=== PATIENT | female | born 1980 | race Caucasian/White ===

== ENCOUNTER 2017-02-02 17:08 | Inpatient (IN) | payer OTHER ==
[~2017-02-02] VITALS: Ht 177.8 cm; Wt 99.0 kg
--- NOTE | 2017-02-02 17:15 | NUR ---
PT BIBA FROM HOME FOR NARCOTIC OVERDOSE. PER EMS, PT WAS FOUND UNRESPONSIVE IN BATHROOM BY CHILD.PER REPORT, PT HAD CALLED BOYFRIEND 1/2 HOUR PRIOR TO EMS ARRIVAL AND STATED THAT SHE WANTED TO HARM HERSELF. EMS STATES PATIENT HAD INGESTED APPROX 120 7.5MG OXYCODONE. 4MG IV NARCAN GIVEN ON SCENE WITH NO RESPONSE. PT ARRIVES WUITH NASAL ET TUBE, RTEPORT SINUS TACH 127.
--- NOTE | 2017-02-02 17:23 | ED GENERAL ADULT ---
History of Present Illness General Chief Complaint: ETOH/Drug Related Complaint Stated Complaint: BIBA FOR OVERDOSE Source: patient Exam Limitations: clinical condition, poor historian, physical impairment Vital Signs & Intake/Output Vital Signs & Intake/Output Vital Signs Date Time Temp Pulse Resp B/P B/P Pulse O2 O2 Flow FiO2 Mean Ox Delivery Rate 02/02 1801 96.7 103 18 117/65 100 Ventilator 50% 02/02 1758 80 02/02 1735 100 Ventilator 80% 02/02 3757 151 6027/87 Allergies Coded Allergies: UNOBTAINABLE (02/02/17) Triage Note: PT BIBA FROM HOME FOR NARCOTIC OVERDOSE. PER EMS, PT WAS FOUND UNRESPONSIVE IN BATHROOM BY CHILD.PER REPORT, PT HAD CALLED BOYFRIEND 1/2 HOUR PRIOR TO EMS ARRIVAL AND STATED THAT SHE WANTED TO HARM HERSELF. EMS STATES PATIENT HAD INGESTED APPROX 120 7.5MG OXYCODONE. 4MG IV NARCAN GIVEN ON SCENE WITH NO RESPONSE. PT ARRIVES WUITH NASAL ET TUBE, RTEPORT SINUS TACH 127. Triage Nurses Notes Reviewed? yes Onset: Abrupt Duration: hour(s): Timing: unknown HPI: The patient was seen on arrival. She is a 36-year-old female who presents to the emergency department after an overdose. Apparently she was depressed, called her boyfriend, and ingested multiple pills this afternoon. EMS arrived and the scene and found her unresponsive and not breathing. She was nasotracheally intubated in the field, after she did not respond to 4 mg of Narcan. Fingerstick was normal per EMS. The onset of the symptoms were abrupt. The duration was sometime today. The severity is significant as her symptoms required her to come to the emergency department for care. Fingerstick in the ED was 110. She was given an additional 1 mg of Narcan with no response. Soft restraints were applied for her own safety. Anesthesia was called to evaluated the tube and concurred with the decision to maintain the current tube. Poison control was consulted. Past History Travel History Traveled to [place] past 21 day No Medical History Any Pertinent Medical History? see below for history Psychiatric: depression Surgical History Surgical History: unobtainable Family History Hx Contributory? No Review of Systems Review of Systems Constitutional: Reports: no symptoms. EENTM: Reports: no symptoms. Respiratory: Reports: see HPI. Cardiovascular: Reports: no symptoms. GI: Reports: no symptoms. Genitourinary: Reports: no symptoms. Musculoskeletal: Reports: no symptoms. Skin: Reports: no symptoms. Neurological/Psychological: Reports: see HPI. Hematologic/Endocrine: Reports: no symptoms. Immunologic/Allergic: Reports: no symptoms. All Other Systems: Reviewed and Negative Physical Exam Physical Exam General Appearance: intubated Head: pupils equally reactive to light, trachea midline Eyes: Bilateral: PERRL. Ears, Nose, Throat: endotracheal tube through right naris Neck: supple Respiratory: good air entry bilaterally with bagging Cardiovascular: regular rate/rhythm Peripheral Pulses: 4+ radial (R), 4+ radial (L) Gastrointestinal: soft, non-tender Back: decreased range of motion Extremities: no edema Neurologic/Psych: combative, no focal weakness, Skin: intact, normal color, warm/dry Core Measures ACS in differential dx? No CVA/TIA Diagnosis: No Severe Sepsis Present: No Septic Shock Present: No Progress Differential Diagnoses I considered the following diagnoses in my evaluation of the patient: [Polydrug ingestion, Tylenol overdose, aspiration pneumonia, ARDS,] Plan of Care: Orders Procedure Date/time Status Nothing by Mouth 02/03 B Active LACTIC ACID 02/02 2021 Active Pathway - chart 02/02 1909 Active House Staff 02/02 190 Active Patient Data 02/02 190 Active CULTURE,URINE 02/02 190 Active Admit to inpatient 02/02 1858 Active Add-on Test (ER Only) 02/02 185 Active VENTILATOR PARAMETERS 02/02 1804 Complete ARTERIAL BLOOD GAS (GEN) 02/02 1753 Complete Add-on Test (ER Only) 02/02 1753 Active Restraint- Medical 02/02 1753 Active Add-on Test (ER Only) 02/02 1747 Active URINE 02/02 1723 Complete ACETOMINOPHEN 02/02 1723 Complete SALICYLATE 02/02 1723 Complete ETHANOL 02/02 1723 Complete URINE DRUG SCREEN FOR ER ONLY 02/02 1721 Complete URINALYSIS 02/02 1721 Complete PARTIAL THROMBOPLASTIN TIME 02/02 1721 Complete PROTHROMBIN TIME 02/02 1721 Complete LACTIC ACID 02/02 1721 Complete COMPREHENSIVE METABOLIC PANEL 02/02 1721 Complete CBC WITHOUT DIFFERENTIAL 02/02 1721 Complete EKG 02/02 1721 Active VTE Mechanical Prophylaxis 02/02 UNK Active Vital Signs 02/02 UNK Active Intake & Output 02/02 UNK Active Garibay, Insertion/Removal/Asses 02/02 UNK Active Current Medications Sig/Mervat Start time Last Medication Dose Stop Time Status Admin Acetylcysteine 10,000 MG ONE ONE 02/03 0030 AC (Acetadote) 02/03 1629 Dextrose/Water 1,000 ML (D5W 1000) Acetylcysteine 5,000 MG ONE ONE 02/02 2030 AC (Acetadote) 02/03 0029 Dextrose/Water 500 ML (D5W) Acetylcysteine 15,000 MG ONE ONE 02/02 1930 AC (Acetadote) 02/02 2029 Dextrose/Water 200 ML (D5W) Enoxaparin Sodium 30 MG DAILY 02/03 1908 UNVr (Lovenox) Laboratory Tests 02/02/17 1755: pH 7.41, pCO2 33 L, pO2 448 H, HCO3 20 L, ABG O2 Sat (Measured) 99.0, P-50 ( Temp Corrected) Y, Carboxyhemoglobin 0.1 L, O2 Concentration % 80%, Temperature 97.0, Respiration Rate 18, O2 Delivery Method VENT, Vent Mode CMV, Expiratory Pressure 5, Tidal Volume 500, Phlebotomy Draw Site RIGHT RADIAL 02/02/17 1723: Urine Opiates Screen 885.00, Methadone Screen 89, Barbiturate Screen < 60, Ur Phencyclidine Scrn 7.00, Amphetamines Screen 849, U Benzodiazepines Scrn < 85, Urine Cocaine Screen < 50, Urine Cannabis Screen < 5.00 02/02/17 1723: Anion Gap 16, Estimated GFR > 60, BUN/Creatinine Ratio 21.3, Glucose 119 H, Lactic Acid 2.4 H, Calcium 9.1, Total Bilirubin 1.2, AST 29, ALT 38, Alkaline Phosphatase 63, Total Protein 6.4, Albumin 4.1, Globulin 2.3, Albumin/Globulin Ratio 1.8, PT 12.0, INR 1.14, APTT 29, CBC w Diff NO MAN DIFF REQ, RBC 4.33, MCV 93.7, MCH 31.0, RDW 13.6, MPV 9.3, Gran % 62.3, Lymphocytes % 28.7, Monocytes % 6.3, Eosinophils % 2.0, Basophils % 0.7, Absolute Granulocytes 3.9, Absolute Lymphocytes 1.8, Absolute Monocytes 0.4, Absolute Eosinophils 0.1, Absolute Basophils 0, PUBS MCHC 33.1, Salicylates < 1.0, Acetaminophen 95.0 *H, Serum Alcohol < 10.0, Urine Color YEL, Urine Clarity CLEAR, Urine pH 6.0, Ur Specific [place] 1.020, Urine Protein NEG, Urine Ketones NEG, Urine Nitrite NEG, Urine Bilirubin NEG, Urine Urobilinogen 0.2, Ur Leukocyte Esterase NEG, Ur Microscopic EXAM NOT REQUIRED, Urine Hemoglobin NEG, Urine Glucose NEG, Urine Test NEGATIVE Microbiology 02/02 1909 URINE ROUT: Urine Culture - ORD CXR Impression: ENDOTRACHEAL TUBE IN GOOD POSITION Initial ED EKG: NSR Departure Departure Disposition: STILL A PATIENT Condition: Stable Clinical Impression Primary Impression: Drug ingestion Secondary Impressions: Depression, Respiratory failure, Tylenol overdose Referrals: PATIENT HAS NO PRIMARY CARE DR (PCP/Family) Departure Forms: Customer Survey General Discharge Information Admission Note Spoke With: GOSIA DAVE MD Documentation of Exam: Documentation of any treatments & extenuating circumstances including Concerns Regarding Discharge (functional status, medication knowledge or non-compliance, living conditions, etc.) that warrant an admission rather than observation: [ Patient needs to be admitted to the ICU for critical care. Tylenol level was elevated. I spoke with poison control who suggested starting Mucomyst protocol at 150 mg/kg in 250 mL of D5W over an hour followed by 50 mg/kg in 500 mL of D5 water over 4 hours immediately followed by 100 mg/kg and 1 L of D5 water over 16 hours. The patient is intubated. We are estimating 70 kg. She is being admitted to the ICU for further care] CXR IMPRESSION: 1. Endotracheal tube with its tip terminating approximately 7.0 cm proximal to the christine. 2. Clear lungs. DICTATED BY: TARAH BENAVIDES MD DATE/TIME DICTATED:02/02/171852 UMBRELLA TIPPER:DRAKE DATE/TIME TRANSCRIBED:02/02/171852 CONFIDENTIAL, DO NOT COPY WITHOUT APPROPRIATE AUTHORIZATION. <Electronically signed in Other Vendor System> SIGNED BY: TARAH BENAVIDES MD [id number] Critical Care Note Critical Care Note Critical Care Time: 30-74 min
--- NOTE | 2017-02-02 17:25 | NUR ---
ORIGINAL PEC PLACED IN LOCK BOX. COPY TO CHART.
--- NOTE | 2017-02-02 17:26 | NUR ---
LABS DRAWN AND SENT (BLUE SST LAV [facility])
[2017-02-02 17:40] LABS: ABSOLUTE BASOPHIL COUNT 0 /CUMM (0.0-0.2); ABSOLUTE EOSINOPHIL COUNT 0.1 /CUMM (0.0-0.7); ABSOLUTE GRANULOCYTE CT 3.9 /CUMM (1.4-6.5); ABSOLUTE LYMPH COUNT 1.8 /CUMM (1.2-3.4); ABSOLUTE MONOCYTE COUNT 0.4 /CUMM (0.10-0.60); BASOPHIL % 0.7 % (0.0-2.0); GRANULOCYTE % 62.3 % (42.2-75.2); HEMATOCRIT 40.6 % (37-47); MEAN CORPUSCULAR HGB CONC 33.1 G/DL (33.0-37.0); MEAN CORPUSCULAR VOLUME 93.7 FL (81.0-99.0); MEAN PLATELET VOLUME 9.3 FL (7.4-10.4); PLATELET COUNT 174 /CUMM (130-400); RBC DISTRIBUTION WIDTH 13.6 % (11.5-14.5); RED BLOOD CELL CT 4.33 /CUMM (4.20-5.40); WHITE BLOOD CELL COUNT 6.3 /CUMM (4.8-10.8)
[2017-02-02 18:04] LABS: PTT 29 SEC (25-37)
--- NOTE | 2017-02-02 18:12 | NUR ---
FAMILY AT BEDSIDE
--- NOTE | 2017-02-02 18:19 | NUR ---
CRITICAL TEST RESULTS [id number] CHRISTOPHER NOLEN 36 F TESTS AND RESULTS: LACTIC ACID 2.4 Results received and read back by: IAN BRASWELL Results received date and time: 02/02/171819 The following provider was notified of the results, and read the results back: DR. DENNY Notified date and time: 02/02/17 at 1820
--- NOTE | 2017-02-02 18:34 | NUR ---
PORTABLE CHEST X RAY AT BEDSIDE
--- NOTE | 2017-02-02 18:41 | NUR ---
CRITICAL TEST RESULTS [id number] CHRISTOPHER NOLEN 36 F TESTS AND RESULTS: ACETAMINOPHEN 95.0 Results received and read back by: IAN BRASWELL Results received date and time: 02/02/17 1841 The following provider was notified of the results, and read the results back: DR. DENNY Notified date and time: 02/02/17 at 1840
--- NOTE | 2017-02-02 19:02 | RADIOLOGY REPORT ---
EXAMINATION: XR CHEST PORTABLE CLINICAL INFORMATION: Status post intubation. COMPARISON: No relevant prior studies are available for comparison. TECHNIQUE: Portable frontal view of the chest was obtained. FINDINGS: The endotracheal tube is noted with its tip terminating approximately 7.0 cm proximal to the christine. No airspace consolidation. No pleural effusion or pneumothorax. No cardiomediastinal silhouette enlargement. No acute osseous interbody. IMPRESSION: 1. Endotracheal tube with its tip terminating approximately 7.0 cm proximal to the christine. 2. Clear lungs.
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
--- NOTE | 2017-02-02 19:28 | NUR ---
ADMITTING MD AT BEDSIDE FOR EVAL
--- NOTE | 2017-02-02 20:05 | NUR ---
ACETADOTE #1 INITIATED AT 275ML/HR ORDERED
--- NOTE | 2017-02-02 20:47 | NUR ---
PT GOING TO ROOM 106-1.
[2017-02-02 21:30] VITALS: BP 148/78
[2017-02-02 22:00] VITALS: BP 116/95
[2017-02-02 22:56] LABS: ABSOLUTE BASOPHIL COUNT 0 /CUMM (0.0-0.2); ABSOLUTE EOSINOPHIL COUNT 0 /CUMM (0.0-0.7); ABSOLUTE GRANULOCYTE CT 6.3 /CUMM (1.4-6.5); ABSOLUTE LYMPH COUNT 0.7 /CUMM (1.2-3.4); ABSOLUTE MONOCYTE COUNT 0.3 /CUMM (0.10-0.60); BASOPHIL % 0.3 % (0.0-2.0); EOSINOPHIL % 0.1 % (0-5); GRANULOCYTE % 86.6 % (42.2-75.2); HEMATOCRIT 36.2 % (37-47); MEAN CORPUSCULAR HGB 31.4 PG (27.0-31.0); MEAN CORPUSCULAR HGB CONC 33.7 G/DL (33.0-37.0); MEAN CORPUSCULAR VOLUME 93.3 FL (81.0-99.0); MEAN PLATELET VOLUME 9.3 FL (7.4-10.4); PLATELET COUNT 159 /CUMM (130-400); RBC DISTRIBUTION WIDTH 13.9 % (11.5-14.5); RED BLOOD CELL CT 3.88 /CUMM (4.20-5.40)
--- NOTE | 2017-02-02 23:15 | NUR ---
RECEIVED PT FROM ER VIA STRETCHER AT 2130-PT NASALLY INTUBATED AND BAGGED BY RESP THERAPIST, ACETYLCYSTINE GTT INFUSING, EKG MONITORING, BARONE IN PLACE, SOFT BILATERAL WRIST RESTRAINTS ON. PT PLACED IN BED AND ATTACHED TO BEDSIDE MONITOR. PT UNRESPONSIVE TO VERBAL STIMULI, WITHDRAWS TO PAINFUL STIMULI. BREATH SOUNDS CLEAR WITH DIMINISHED BREATH SOUNDS AT BASES BILATERALLY. SUCTIONING FOR MOD AMT OF THICK PALE YELLOW SECREATIONS. NO SOB OR RESP DISTRESS NOTED AT PRESENT. SEE FLOW SHEET FOR VS, 02 SATS, I/O'S. MONITOR SHOWS ST, NO ECTOPY NOTED AT PRESENT. BP STABLE AT PRESENT. ABD OBESE, SOFT, NONTENDER, NONDISTENDED, POSITIVE BOWEL SOUNDS. BARONE DRAINING ADEQUATE AMT OF CLEAR YELLOW URINE AT PRESENT. SKIN INTACT. FAMILY AT BEDSIDE.
[2017-02-02 23:19] LABS: WHITE BLOOD CELL COUNT 7.3 /CUMM (4.8-10.8)
[2017-02-03] VITALS (10 sets, daily range): BP systolic 114–150; BP diastolic 62–86
--- NOTE | 2017-02-03 00:36 | NUR ---
PROPOFOL GTT STARTED AT 2245 AT 5MCG/KG/HR ORDERED-SEE FLOW SHEET FOR SAS SCORES. NGT ORDERED-SPOKE WITH DR. MODI-STATED TO NOT INSERT PT IS ALREADY NASALLY INTUBATED, NOT VOMITING OR RECEIVING ANY PO MEDS. WILL MONITOR. PT NOW OPENING EYES TO VERBAL STIMULI, FOLLOWING SOME COMMANDS AT PRESENT
--- NOTE | 2017-02-03 00:57 | Admission Certification ---
Admission Certification Certification Statement - As attending physician, I certify that at the time of - admission, based on clinical presentation, severity of - symptoms, need for further diagnostic testing and - therapeutic interventions, and risk of adverse outcomes - without in-hospital treatment, in my clinical assessment, - this patient requires an acute hospital stay for a minimum - of two nights or longer. I have also considered psychsocial - factors such as support system, advanced age, financial - issues, cognitive issues, and failed out-patient treatments, - past re-admission history, safety of patient, and lack of - compliance as applicable. Specific rationale supporting this admission is: Overdose, suicidal attempt, acute respiratory failure
[2017-02-03 04:38] LABS: ABSOLUTE BASOPHIL COUNT 0 /CUMM (0.0-0.2); ABSOLUTE EOSINOPHIL COUNT 0 /CUMM (0.0-0.7); ABSOLUTE GRANULOCYTE CT 7.3 /CUMM (1.4-6.5); ABSOLUTE LYMPH COUNT 0.5 /CUMM (1.2-3.4); ABSOLUTE MONOCYTE COUNT 0.3 /CUMM (0.10-0.60); BASOPHIL % 0.4 % (0.0-2.0); EOSINOPHIL % 0.4 % (0-5); GRANULOCYTE % 89.5 % (42.2-75.2); HEMATOCRIT 38.5 % (37-47); MEAN CORPUSCULAR HGB 31.1 PG (27.0-31.0); MEAN CORPUSCULAR VOLUME 94.2 FL (81.0-99.0); MEAN PLATELET VOLUME 9.6 FL (7.4-10.4); PLATELET COUNT 160 /CUMM (130-400); RED BLOOD CELL CT 4.09 /CUMM (4.20-5.40); WHITE BLOOD CELL COUNT 8.1 /CUMM (4.8-10.8)
[2017-02-03 04:39] LABS: PT 13.1 SEC (9.4-12.5)
--- NOTE | 2017-02-03 06:32 | NUR ---
PT ON PROPOFOL GTT AT 10MCG/KG/MIN-SAS 3-4, PT DROWSY, EASILY AROUSABLE TO VERBAL STIMULI, FOLLOWING COMMANDS AT PRESENT. MOVES ALL EXTREMITIES. PT APPRORATE. PT REMAINS NASALLY INTUBATED, MINIMAL SUCTIONING OF PALE YELLOW SECREATIONS. BREATH SOUNDS CLEAR. MONITOR NSR-ST-HR 90-100'S. BP STABLE THOUGHOUT SHIFT. GOOD URINE OUTPUT THOUGHOUT SHIFT. SKIN INTACT
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
--- NOTE | 2017-02-03 08:01 | RADIOLOGY REPORT ---
EXAMINATION: CHEST 1 VIEW CLINICAL INFORMATION: Intubated. Overdose. COMPARISON: 02/02/2017. TECHNIQUE: An AP view of the chest is provided. FINDINGS: The cardiac silhouette is not enlarged. An endotracheal tube is in place. The tip is approximately 10 cm above the christine. The mediastinal and hilar contours are unremarkable. There are neither pleural effusions nor pneumothoraces. There are no consolidations. The osseous structures are unremarkable. IMPRESSION: Endotracheal tube in place. No evidence for acute disease.
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
[2017-02-03 16:15] LABS: ABSOLUTE BASOPHIL COUNT 0 /CUMM (0.0-0.2); ABSOLUTE EOSINOPHIL COUNT 0 /CUMM (0.0-0.7); ABSOLUTE GRANULOCYTE CT 5.7 /CUMM (1.4-6.5); ABSOLUTE LYMPH COUNT 1.3 /CUMM (1.2-3.4); ABSOLUTE MONOCYTE COUNT 0.5 /CUMM (0.10-0.60); BASOPHIL % 0.5 % (0.0-2.0); EOSINOPHIL % 0.5 % (0-5); GRANULOCYTE % 75.6 % (42.2-75.2); HEMATOCRIT 39.4 % (37-47); MEAN CORPUSCULAR HGB 31.1 PG (27.0-31.0); MEAN CORPUSCULAR HGB CONC 33.6 G/DL (33.0-37.0); MEAN CORPUSCULAR VOLUME 92.8 FL (81.0-99.0); PLATELET COUNT 190 /CUMM (130-400); RBC DISTRIBUTION WIDTH 13.6 % (11.5-14.5); RED BLOOD CELL CT 4.25 /CUMM (4.20-5.40); WHITE BLOOD CELL COUNT 7.6 /CUMM (4.8-10.8)
[2017-02-03 16:26] LABS: PTT 38 SEC (25-37)
--- NOTE | 2017-02-03 18:27 | NUR ---
NAC BAG #3 FINISHED. TYLENOL LEVEL <10. PER DR ROSEN, NO FURTHER NAC NEEDED. PT A/O, OCCASIONAL TEARFUL. PROVIDED EMOTIONAL SUPPORT. PT IS PHILIP WELL, INDEPENDENT. ON ROOM AIR, 97% LUNGS CLEAR. VSS.
[2017-02-04] VITALS (8 sets, daily range): BP systolic 94–130; BP diastolic 52–72
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
--- NOTE | 2017-02-04 08:28 | PN- CRCU ---
Subjective HPI/Critical Care Issues: The patient is doing well postextubation. She is on room air. She offers no respiratory complaints. She is taking in adequate oral intake. Her Garibay catheter has been discontinued and she is voiding independently. She is very remorseful today and asking for help for herself and her children. Objective Current Medications: Current Medications Sig/Mervat Start time Last Medication Dose Route Stop Time Status Admin Acetylcysteine 10,000 MG ONE ONE 02/03 0030 DC 02/03 Dextrose/Water 1,000 ML IV 02/03 1629 0140 Enoxaparin Sodium 40 MG DAILY 02/03 0300 AC 02/03 SC 0924 Famotidine 20 MG BID 02/03 1000 AC 02/03 IV 2150 Magnesium Sulfate 1 GM ONCE ONE 02/03 0815 MO 02/03 Dextrose/Water 100 ML IV 02/03 1214 0846 Melatonin 10 MG AT BEDTIME 02/03 2200 AC 02/03 PO 2210 Ondansetron HCl 4 MG Q6P PRN 02/03 0915 AC 02/03 IV 0924 Potassium Chloride 10 MEQ Q1H 02/03 0815 DC 02/03 IV 02/03 0916 1122 Propofol 1,000 MG PER PROTOCL 02/02 2145 DC 02/02 N/A 1 UNIT IV 2245 Sodium Chloride 1 SPRAY TIDPRN PRN 02/03 1100 AC NIRALI Sodium Chloride 1,000 ML Q13H 02/03 0200 DC 02/03 IV 0245 Vital Signs & I&O Last 24 Hrs of Vitals and I&O: Vital Signs Date Time Temp Pulse Resp B/P B/P Pulse O2 O2 Flow FiO2 Mean Ox Delivery Rate 02/04 0600 98.7 66 16 112/71 02/04 0400 98.7 62 14 111/64 02/04 0200 98.9 64 16 108/61 02/04 0000 98.9 72 18 103/54 02/04 0000 98.9 72 18 110/60 96 Room Air Room Air 02/03 2200 99.5 80 16 119/65 02/03 2000 99.5 82 18 114/62 02/03 1800 99.2 82 24 119/73 02/03 1600 99.2 96 17 146/80 02/03 1600 99.2 96 17 146/80 97 Room Air 02/03 1600 97 Room Air 02/03 1400 99 23 130/68 02/03 1200 98.7 98 18 124/68 02/03 1200 97 Room Air 02/03 0838 30 Intake & Output 02/04 1600 02/04 0800 02/04 0000 Intake Total 200 1130 Output Total Balance 200 1130 Intake, IV 250 Intake, Oral 200 880 Exam General Appearance: no apparent distress, alert, awake, comfortable Head: atraumatic, normal appearance Neck: supple Respiratory: no respiratory distress, lungs clear Cardiovascular: regular rate/rhythm Abdomen: normal bowel sounds, soft, non-tender Extremities: no edema Skin: intact, normal color, warm/dry Results Last 24 Hrs of Lab Results: Laboratory Tests 02/03/17 1607: Anion Gap 9, Estimated GFR > 60, Glucose 108 H, Calcium 8.9, Phosphorus 2.4 L, Magnesium 2.1, Total Bilirubin 0.5, AST 21, ALT 33, Albumin 3.6, PT 13.0 H, INR 1.24 H, APTT 38 H, CBC w Diff NO MAN DIFF REQ, RBC 4.25, MCV 92.8, MCH 31.1 H , RDW 13.6, MPV 9.0, Gran % 75.6 H, Lymphocytes % 17.1 L, Monocytes % 6.3, Eosinophils % 0.5, Basophils % 0.5, Absolute Granulocytes 5.7, Absolute Lymphocytes 1.3, Absolute Monocytes 0.5, Absolute Eosinophils 0, Absolute Basophils 0, PUBS MCHC 33.6, Acetaminophen < 10.0 L 02/03/17 1009: pH 7.43, pCO2 35, pO2 147 H, HCO3 23, ABG O2 Sat (Measured) 99.0, P-50 (Temp Corrected) NO, Carboxyhemoglobin 0.3 L, O2 Concentration % 30%, Temperature 98.3, O2 Delivery Method VENT, Vent Mode CPAP, Expiratory Pressure 5, Pressure Support 6, Phlebotomy Draw Site RIGHT BRACHIAL Impression/Plan Impression/Plan Impression/Plan: 1. Suicide attempt. 2. Polypharmacy overdose with resolved respiratory failure. 3. Resolved respiratory failure. Recommendations: * Follow-up psychiatry and outreach and education social worker recommendations, appreciate input. * Monitor for withdrawal of opiates. * Continue Lovenox for DVT prophylaxis. * Encourage oral intake, monitor off IV fluids. * Continue melatonin at bedtime. * Downgrade to Admatic. * Continue one-to-one sitter, the patient may not leave the hospital AMA in the plan is for possible inpatient psych.
--- NOTE | 2017-02-04 12:42 | PN- Psychiatry ---
Assessment/Plan Impression: Identifying Info: 36-year-old single -German female brought in by ambulance status post suicide attempt by overdose. Now currently in the critical care unit awiting transfer to [facility]. SUBJECTIVE Patient states "It is sad that this had to happen for me to get help." Reports she is still agreeable to plan for inpatient psychiatry. She will be visited by DCF worker in the hospital today at 1 PM. She reports family has been supporting her and taking care of the children while she is in hospital. Brief ROS Gait: Reports steady Sleep: Fair Appetite: Fair OBJECTIVE Mental Status Exam Presentation/Appearance: Calm, cooperative with evaluation. Hospital garb. Orientation: x3 Sensorium: Awake and alert Eye contact: Appropriate Affect: Full range, tearful at times Mood: "Good" improved, somewhat elevated Depression: Denies Anxiety: Denies Thought Content: - Denies SI/HI, AH/VH, PI. States and also believes they will not kill themselves. - Denies Hopeless/Helpless Thoughts Thought Process: Linear Associations: Appropriate Speech: Normal tone and rate Judgment: Fair Insight: Fair Cognition: Memory: Recent deficits, otherwise intact Attention/Concentration: Grossly intact Fund of Knowledge: Adequate Abstractions: Did not assess MMSE: Did not assess Nursing reports no issues patient has been in good behavioral control, accepting of care, and appropriate. Her only complaint is that she misses her children. ASSESSMENT 36-year-old single female presents status post suicide by polysubstance overdose attempt that required intubation in critical care unit stay. She denies any previous psychiatric diagnosis but does endorse symptoms that may be suggestive of bipolar disorder or PTSD. She is experiencing improvement in mood today which she attributes to feeling like she is receiving help. At present she requires psychiatric hospitalization once medically cleared. Diagnosis Rule out unspecified bipolar disorder Rule out post traumatic stress disorder Rule out unspecified mood disorder Rule out adjustment disorder A total of 30 minutes was spent with the patient with more than 50% of the time spent in counseling and/or coordination of care. Suggestion: 1. Patient may not leave hospital AMA. At present plan to sign in voluntarily for inpatient psychiatry once she is medically cleared. PEC if patient asks to leave. 2. Social work to see patient today. Thank you for including psychiatry in this case, we will follow until psychiatric admission. Subjective Subjective: as above Objective Last 24 Hrs of Vital Signs/I&O Current Medications Sig/Mervat Start time Last Medication Dose Route Stop Time Status Admin Acetylcysteine 10,000 MG ONE ONE 02/03 0030 DC 02/03 Dextrose/Water 1,000 ML IV 02/03 1629 0140 Enoxaparin Sodium 40 MG DAILY 02/03 0300 AC 02/04 SC 1057 Famotidine 20 MG BID 02/03 1000 AC 02/04 IV 1057 Melatonin 10 MG AT BEDTIME 02/03 2200 AC 02/03 PO 2210 Ondansetron HCl 4 MG Q6P PRN 02/03 0915 AC 02/03 IV 0924 Sodium Chloride 1 SPRAY TIDPRN PRN 02/03 1100 AC NIRALI Sodium Chloride 1,000 ML Q13H 02/03 0200 DC 02/03 IV 0245 Laboratory Tests 02/03/17 1607: Anion Gap 9, Estimated GFR > 60, Glucose 108 H, Calcium 8.9, Phosphorus 2.4 L, Magnesium 2.1, Total Bilirubin 0.5, AST 21, ALT 33, Albumin 3.6, PT 13.0 H, INR 1.24 H, APTT 38 H, CBC w Diff NO MAN DIFF REQ, RBC 4.25, MCV 92.8, MCH 31.1 H , RDW 13.6, MPV 9.0, Gran % 75.6 H, Lymphocytes % 17.1 L, Monocytes % 6.3, Eosinophils % 0.5, Basophils % 0.5, Absolute Granulocytes 5.7, Absolute Lymphocytes 1.3, Absolute Monocytes 0.5, Absolute Eosinophils 0, Absolute Basophils 0, PUBS MCHC 33.6, Acetaminophen < 10.0 L Vital Signs Date Time Temp Pulse Resp B/P B/P Pulse O2 O2 Flow FiO2 Mean Ox Delivery Rate 02/04 0800 99.3 80 20 94/52 97 Room Air 02/04 0600 98.7 66 16 112/71 02/04 0400 98.7 62 14 111/64 02/04 0200 98.9 64 16 108/61 02/04 0000 98.9 72 18 103/54 02/04 0000 98.9 72 18 110/60 96 Room Air Room Air 02/03 2200 99.5 80 16 119/65 02/03 2000 99.5 82 18 114/62 02/03 1800 99.2 82 24 119/73 02/03 1600 99.2 96 17 146/80 02/03 1600 99.2 96 17 146/80 97 Room Air 02/03 1600 97 Room Air 02/03 1400 99 23 130/68 Intake & Output 02/04 1600 02/04 0800 02/04 0000 Intake Total 200 1130 Output Total Balance 200 1130 Intake, IV 250 Intake, Oral 200 880
--- NOTE | 2017-02-04 13:33 | NUR ---
REPORT GIVEN TO ROSALINO WYMAN ON [address]. ROOM 232
--- NOTE | 2017-02-04 14:39 | NUR ---
PATIENT ARRIVED TO UNIT, A/O ORIENTED TO ROOM, IV LOCKS IN PLACED, SAFETY MAINTAINED, NEEDS N REACH, REPORT GIVEN TO ELENA
--- NOTE | 2017-02-04 19:03 | NUR ---
1430: SENT OUT TO [facility]. SITTER AT BEDSIDE. A+OX3. VSS. AFEBRILE. BELONGINGS WITH PATIENT. MEDS, CHART AND STAMPER SENT.
[2017-02-05] VITALS (8 sets, daily range): BP systolic 108–144; BP diastolic 60–80
--- NOTE | 2017-02-05 07:35 | NUR ---
Referral received yesterday morning via electronic money order clerk. This patient was admitted to the hospital on 02/02/17 after a pharmological overdose in an admitted suicide attempt. Patient was admitted initially to [facility] and was intubated; now on general medicine plan for inpatient psychiatric transfer when stable. DCF is involved; worker Alyssia Baxter visited patient at hospital yesterday. She is aware of plan for anticipated transfer to [facility] and would like to be made aware of the discharge plan. Ms. Alonso's children are currently being cared for by family.
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
--- NOTE | 2017-02-05 10:06 | PN- Psychiatry ---
Assessment/Plan Impression: Identifying Info: 36-year-old single -[place] female brought in by ambulance status post suicide attempt by overdose. Now currently on general medicine awaiting transfer to psychiatry. SUBJECTIVE Patient reports she had a good meeting with DCF yesterday. He rfamily visited in the evening which was hard because it was sad to see her children leave. Remains agreeable for psychiatry and follow up care. Verbalizes agreement that if no [facility] bed becomes availible we will transfer to another psych facility. Brief ROS Gait: Reports steady Sleep: Fair Appetite: Fair OBJECTIVE Mental Status Exam Presentation/Appearance: Calm, cooperative with evaluation. Hospital garb. Orientation: x3 Sensorium: Awake and alert Eye contact: Appropriate Affect: Full range Mood: "Feel great," elevated Depression: Denies Anxiety: Denies Thought Content: - Denies SI/HI, AH/VH, PI. States and also believes they will not kill themselves. - Denies Hopeless/Helpless Thoughts Thought Process: Linear Associations: Appropriate Speech: Normal tone and rate Judgment: Fair Insight: Fair Cognition: Memory: Recent deficits, otherwise intact Attention/Concentration: Grossly intact Fund of Knowledge: Adequate Abstractions: Did not assess MMSE: Did not assess ASSESSMENT 36-year-old single female presents status post suicide by polysubstance overdose attempt that required intubation in critical care unit stay. She denies any previous psychiatric diagnosis but does endorse symptoms that may be suggestive of bipolar disorder or PTSD. She is experiencing improvement in mood today which she attributes to feeling like she is receiving help. At present she requires psychiatric hospitalization once medically cleared. Diagnosis Rule out unspecified bipolar disorder Rule out post traumatic stress disorder Rule out unspecified mood disorder Rule out adjustment disorder A total of 30 minutes was spent with the patient with more than 50% of the time spent in counseling and/or coordination of care. Suggestion: 1. Patient may not leave hospital AMA. At present plan to sign in voluntarily for inpatient psychiatry once she is medically cleared. PEC if patient asks to leave. 2. DCF to be involved in discharge planning. Thank you for including psychiatry in this case, we will follow until psychiatric admission. Subjective Subjective: as above Objective Last 24 Hrs of Vital Signs/I&O Current Medications Sig/Mervat Start time Last Medication Dose Route Stop Time Status Admin Enoxaparin Sodium 40 MG DAILY 02/03 0300 AC 02/05 SC 0843 Famotidine 20 MG BID 02/03 1000 AC 02/05 IV 0843 Melatonin 10 MG AT BEDTIME 02/03 2200 AC 02/04 PO 2157 Ondansetron HCl 4 MG Q6P PRN 02/03 0915 AC 02/03 IV 0924 Sodium Chloride 1 SPRAY TIDPRN PRN 02/03 1100 AC NIRALI Vital Signs Date Time Temp Pulse Resp B/P B/P Pulse O2 O2 Flow FiO2 Mean Ox Delivery Rate 02/05 0646 97.7 67 20 108/70 97 Room Air 02/05 0400 97.7 67 20 110/70 02/05 0212 97.6 61 20 120/70 96 Room Air 02/05 0000 97.7 67 20 110/70 02/04 2204 97.7 67 20 110/70 97 Room Air 02/04 1751 98.7 72 20 112/70 99 Room Air 02/04 1420 98.2 65 20 130/72 100
--- NOTE | 2017-02-05 16:58 | Patient Discharge Instructions ---
Discharge Instructions General Discharge Information You were seen/treated for: Medication overdose (Tylenol) Special Instructions: Please follow up with in a week please follow up with Teto muniz Diet Continue normal diet: Yes Activity Full Activity/No Limits: Yes Acute Coronary Syndrome Inclusion Criteria At DC or during hospital stay patient has or had the following: ACS DIAGNOSIS No Discharge Core Measures Meds if any: Prescribed or Continued at Discharge Meds if any: NOT Prescribed or Continued at Discharge Congestive Heart Failure Inclusion Criteria At DC or during hospital stay patient has or had the following: CHF DIAGNOSIS No Discharge Core Measures Meds if any: Prescribed or Continued at Discharge Meds if any: NOT Prescribed or Continued at Discharge Cerebrovascular accident Inclusion Criteria At DC or during hospital stay patient has or had the following: CVA/TIA Diagnosis No Discharge Core Measures Meds if any: Prescribed or Continued at Discharge Meds if any: NOT Prescribed or Continued at Discharge Venous thromboembolism Inclusion Criteria VTE Diagnosis No VTE Type NONE VTE Confirmed by (Test) NONE Discharge Core Measures - Per Current guidelines, there needs to be overlap - treatment for the first 5 days of Warfarin therapy. - If discharged on Warfarin prior to 5 days of - overlap therapy, the patient will need to be - assessed for post discharge needs including - *Post discharge parental anticoagulation - *Warfarin and/or parental anticoagulation education - *Follow up date to check INR post discharge At least 5 days overlap therapy as Inpatient No Meds if any: Prescribed or Continued at Discharge Note: Overlap Therapy is Warfarin and Anticoagulant Meds if any: NOT Prescribed or Continued at Discharge
[2017-02-06 06:00] VITALS: BP 100/70
[2017-02-06 06:19] VITALS: BP 100/70
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
--- NOTE | 2017-02-06 07:16 | Discharge Summary ---
Visit Information Visit Dates Admission Date: 02/02/17 Discharge Date: 02/06/17 Hospital Course Course Attending Physician: GOSIA DAVE MD Primary Care Physician: PATIENT HAS NO PRIMARY CARE DR Hospital Course: 36-year-old woman was brought to ER on 02/02/2017 after she was found unresponsive at home. Earlier during the day of admission, patient was reportedly calling her family members with suicidal ideations and plan and later was found to be obtunded in her room. EMS was called and the patient was immediately nasotracheally intubated on site. She did receive Narcan in the field, to which she reportedly did not respond. Per the EMS, patient had taken 120 pills of oxycodone and Flexeril. Labs showed an unremarkable CBC, bicarbonate of 20 and anion gap of 16 with a lactic acid 2.4, no transaminitis. U tox showed opiate levels of 85, amphetamines 849 and acetaminophen 95. Urinalysis was unremarkable. Chest x-ray showed clear lungs and EKG showed no changes. On physical exam, patient did not follow instructions, grimaced on the pain and moved all extremities spontaneously. Patient was continued on nasotracheal intubation after consulting with anesthesia while inpatient. Patient was admitted with narcotic overdose, in addition to Tylenol and Flexeril. She was also found to be in acute respiratory failure secondary to opiates. Poison control was called and anesthetic consisting treatment per protocol was completed. Patient's LFTs continued to improve. Patient was extubated and the patient was more alert and awake the following day. Psychiatry evaluation was obtained and the patient was maintained on one-to-one sitter. Soon after, patient became clinically stable with no signs of hemodynamical instability, improvement in encephalopathy. The patient was then transferred to general medicine floor for further care. On the second day, patient denied any suicidal or homicidal ideation. Psychiatry consultation was obtained. They suggested that the patient cannot leave AMA and PEC was kept in file. And patient herself volunteered admission to inpatient psychiatry for her further care. Patient is medically stable to be transferred to inpatient psychiatry unit. Full code. DVT prophylaxis was maintained with Lovenox subcutaneous. Regular diet. Allergies: Coded Allergies: Penicillins (Intermediate, RASH 02/02/17) Uncoded Allergies: MEDICAL TAPE (Intermediate, RASH 02/02/17) Disposition Summary Disposition Principal Diagnosis: Acute respiratory failure secondary to opioids. Polysubstance abuse. Additional Diagnosis: Suicide attempt. Encephalopathy. Discharge Disposition: other general hospital (inpatient psychiatry) Discharge Instructions General Discharge Information Code Status: Full Code Patient's Diet: Regular diet. Patient's Activity: As tolerated. Follow-Up Instructions/Appts: Please follow-up with a primary care physician as an outpatient for continued care. Please follow-up with psychiatry after discharge from inpatient psychiatric unit. Copies To: FRIDA JOSE MD; KIMBER CAMACHO APRN Attending Review Statement Documenting Attending: FRIDA JOSE MD
[2017-02-06 14:24] VITALS: BP 120/66
--- NOTE | 2017-02-06 21:59 | NUR ---
AT 1720, PATIENT DISCHRGED TO CPS WITH SITTER AND SECURITY. DISCHARGE PACKET GIVEN TO SECURITY AND PATIENT. PATIENT STABLE AND IN NO APPARENT DISTRESS. NO C/O PAIN. PATIENT LEFT FLOOR VIA WHEELCHAIR.
== END 2017-02-06 18:20 | DRG 812 ==
LOC: EDAGE 17:08 → ERH 17:08 → CRI 18:58 → 2NA 18:58 → ERHI 18:58 → ENRESERV 20:40 → ENTRNSPT 21:05 → EDTRNSPTSTS 21:12 → CRI 21:41 → CMPTRNSPT 21:42 → 2NA 02-04 14:13 → ENPENDDIS 02-06 11:02 → 2NA 02-06 18:20
PROVIDERS: Emergency Medicine; Internal Medicine; ADMIT Internal Medicine
PROC: 5A1935Z Respiratory Ventilation, Less than 24 Consecutive Hours (ICD-10-PCS; principal; 2017-02-02)
PROC: 0BH17EZ Insertion of Endotracheal Airway into Trachea, Via Natural or Artificial Opening (ICD-10-PCS; principal; 2017-02-02)
DX: T39.1X2A Poisoning by 4-Aminophenol derivatives, intentional self-harm, initial encounter (principal); J96.01 Acute respiratory failure with hypoxia; G92 Toxic encephalopathy; E87.2 Acidosis; E66.01 Morbid (severe) obesity due to excess calories; E87.1 Hypo-osmolality and hyponatremia; G89.29 Other chronic pain; M54.9 Dorsalgia, unspecified; Z68.31 Body mass index [BMI] 31.0-31.9, adult; Z98.84 Bariatric surgery status; T40.2X2A Poisoning by other opioids, intentional self-harm, initial encounter; Y92.009 Unspecified place in unspecified non-institutional (private) residence as the place of occurrence of the external cause
CPT/HCPCS: 2NAP; CCU; 80307; 81003; 81025; 82436; 87040; 87086; 87389; 93005; 93010; 94799; 96374; 99291; G0480; J0132; J1650; J2405; J7060

== ENCOUNTER 2017-02-06 11:18 | Inpatient (IN) | payer OTHER ==
[~2017-02-06] VITALS: Ht 167.6 cm; Wt 93.4 kg
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
[2017-02-06 18:53] VITALS: BP 136/90
--- NOTE | 2017-02-06 19:28 | NUR ---
PT IS PLEASANT, COOPERATIVE AND APPROPRIATE WITH PEERS AND STAFF. NO ISSUES OR COMPLIANTS REPORTED OR OBSERVED, REPORTS + MOTIVATION FOR TREATMENT AND LOOKING FORWARD TO MEETING WITH TRAVEL ATTENDANTS AND PSYCHIATRIST AND IS FUTURE ORIENTED. WHEN ASKED DIRECTLY DENIES SI/HI/HALLUCINATIONS AND FEELS COMFORTABLE AND SAFE ON THE UNIT AND WILL LET STAFF KNOW IF ANYTHING CHANGES AND WILL NOT TRY AND HARM SELF HERE. MOOD IS STABLE WITH FULL RANGE AFFECT, AND ACKNOWLEDGES SEVERITY OF ATTEMPT BUT DOES WANT TO BE ALIVE AND PRESENT IN HER CHILDRENS LIFE AND JUST NEEDS ADDITIONAL SUPPORT AND IS HAPPY THAT SHE IS RECEIVIGN THAT NOW AND ADDITIONAL RESOURCES. NO ISSUES OR COMPLAINTS REPORTED OR OBSERVED.
--- NOTE | 2017-02-07 03:35 | NUR ---
AWAKE ONCE FOR IBUPROFEN WITH GOOD RESULTS.
[2017-02-07 07:50] VITALS: BP 122/74
--- NOTE | 2017-02-07 12:12 | PN- Att Addend ---
Attending Addendum Attending Brief Note 36F was brought to ER on 02/02/2017 after she was found unresponsive at home. Earlier during the day of admission, patient was reportedly calling her family members with suicidal ideations and plan and later was found to be obtunded in her room. EMS was called and the patient was immediately nasotracheally intubated on site. She did receive Narcan in the field, to which she reportedly did not respond. Per the EMS, patient had taken 120 pills of oxycodone and Flexeril. Patient was admitted with narcotic overdose, in addition to Tylenol and Flexeril. She was also found to be in acute respiratory failure secondary to opiates. Poison control was called and anesthetic consisting treatment per protocol was completed. Patient's LFTs continued to improve. Patient was extubated and the patient was more alert and awake the following day. Psychiatry evaluation was obtained and the patient was maintained on one-to-one sitter. Soon after, patient became clinically stable with no signs of hemodynamical instability, improvement in encephalopathy. On day of trnasfer, patient denied any suicidal or homicidal ideation. And patient herself volunteered admission to inpatient psychiatry for her further care. Patient admitted to inpatient psychiatry unit, to be managed by psychiatry, no acute medical issues at this time.
[2017-02-07 12:37] VITALS: BP 119/72
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
--- NOTE | 2017-02-07 14:28 | NUR ---
PT IS STABLE WITH BRIGHT, FULL RANGE OF AFFECT. PT HAS BEEN OUT IN THE COMMUNITY ALL AM/PM AND HAS BEEN VERY SOCIAL WITH PEERS/STAFF MEMBERS. PT IS POLITE, APPROPRIATE, PLEASANT AND COOPERATIVE. PT REPORTS MISSING HER CHILDREN BUT HAPPY TO HAVE A BREAK BECAUSE TAKING CARE OF 5 CHILDREN CAN BE "TAXING". PT REPORTS NEEDING REST BUT UNABLE TO SLEEP. VS ARE STABLE AND DENIES ANY SI/HI TO THIS MHW.
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
[2017-02-07 15:46] VITALS: BP 133/79
--- NOTE | 2017-02-07 17:14 | SOCIAL WORKER PROG NOTE PSYCH ---
Social Work Progress Note Progress Note 3:55pm This law writer met with pt. Pt discussed events that led to current hospitalization, specifically lack of sleep due to caring for her children. She stated that her 2 year old daughter has acid reflux and has recently been prescribed medication which has been effective. She stated that her 4 year old son has Asperger's. Pt identified supports that she has (her boyfriend, mother, mother's best friend and the pt's 19 year old son) who will provide additional support to her upon returning home. Pt stated that her intention with the OD was not to end her life, but to ask for help. Pt identified a goal of working on getting better sleep and stated that her supports would assist her with child life therapist so that she would be able to do so. Pt was tearful stating that she wants to return home to her children and does not need to be in the hospital and was willing to attend an IOP. Pt signed a ROD for DCF and for her boyfriend. A family meeting with her boyfriend and mother has been scheduled for 02/10/17 at 10 :30am. This law writer left a vm for her DCF worker, Alyssia Ulloa, with a call back number.
[2017-02-07 20:05] VITALS: BP 120/68
--- NOTE | 2017-02-07 21:12 | NUR ---
Pt is out in the community mood is stable affect is in full range. Pt is cooperative and compliant with the staff. Vital signs are stable. Pt interacts well with her peers. Will continue to monitor the pt overnight.
[2017-02-08 07:39] VITALS: BP 109/73
--- NOTE | 2017-02-08 07:43 | NUR ---
PATIENT SLEPT ALL NIGHT.
--- NOTE | 2017-02-08 11:03 | CP SOUTH PROGRESS NOTE PSYCH ---
Psych (Inpt) Progress Note Progress Note Include the following elements, when applicable: Involvement in the active treatment of the patient with behavioral observations of the patient and the patient's response to the treatment. Review of the ongoing treatment process in the context of the treatment plan. Indication of how multi-disciplinary staff members are carrying out the treatment plan. Plans for future interventions and recommendations for revision of the treatment plan. Liaison with other physicians/providers. Progress Note: Notes reviewed, d/w nursing staff. Met with patient this morning. Denies depressed mood, sleep diffiuclty, appetite difficulty. Denies SI/HI. Reports mild groggy feeling from quetiapine dose last night. Reports mild post-ocular headache with some response to tylenol. Vitals reviewed and within normal limits. Lipid panel and TSH resulted and wnl. MSE: well-groomed AAF, multiple tattoos on arm, pleasant, cooperative on interview. Good eye contact. Speech wnl. Mood "fine". Affect euthymic. TP log/ socorro, content superficial. Denies SI/HI. Denies perceptual disturbance. Cognition grossly intact. I/J fair. A/P: Mood seems to be improving though seems to have limited insight into the severity of her presentation. Continue present management as per primary team.
--- NOTE | 2017-02-08 11:50 | NUR ---
PTS AFFECT IS FULL RANGE AND SHE IS CALM AND COOPERATIVE. SHE IS COMPLIANT WITH HER MED REGIME AND IS ATTENDING GROUPS. SHE DENIED ANY THOUGHTS OF SUICIDE OR SELF HARM AT THIS TIME
[2017-02-08 12:37] VITALS: BP 116/72
[2017-02-08 16:28] VITALS: BP 113/77
--- NOTE | 2017-02-08 17:58 | NUR ---
PT IS CALM, COOPERATIVE WITH STAFF AND PEERS, AND COMPLIANT WITH UNIT RULES. OFTEN IN MILIEU, INTERACTING WELL WITH OTHERS. MOOD IS STABLE, AFFECT APPEARS BRIGH TO FULL RANGE, COMMUNICATION IS ORGANIZED AND APPEARS NORMAL IN ALL RESPECTS, AND APPETITE IS NORMAL. PT DENIES SI AT THIS TIME.
[2017-02-08 19:47] VITALS: BP 116/72
--- NOTE | 2017-02-09 06:12 | NUR ---
PATIENT SLEPT MOST OF THE NIGHT; SHE WAS AWAKE BRIEFLY AT 0440 AND RECEIVED 400MG MOTRIN.
[2017-02-09 08:36] VITALS: BP 107/65
[2017-02-09 12:05] VITALS: BP 99/59
--- NOTE | 2017-02-09 12:41 | CP SOUTH PROGRESS NOTE PSYCH ---
Psych (Inpt) Progress Note Progress Note Include the following elements, when applicable: Involvement in the active treatment of the patient with behavioral observations of the patient and the patient's response to the treatment. Review of the ongoing treatment process in the context of the treatment plan. Indication of how multi-disciplinary staff members are carrying out the treatment plan. Plans for future interventions and recommendations for revision of the treatment plan. Liaison with other physicians/providers. Progress Note: Notes reviewed, d/w nursing staff. Met with patient this morning. Izzy engaged in an insightful interview today describing the challenges she has had raising numerous young children including a child with special needs. "I was basically awake with these kids for a month straight and it just got to me". She identified steps which she will put in place to help her with this task. She looks forward to a family meeting tomorrow. She continues to have R post-ocular headache without any erythema, exophthalmous, visual changes, or pain upon moving the eye. We agree to try ibuprofen and claritin for possible allergy related headache. Vitals reviewed and within normal limits. No new labs. MSE: Largely unchanged well-groomed AAF dressed appropriately, multiple tattoos on arm, pleasant, cooperative on interview. Good eye contact. Speech wnl. Mood "I'm alright, just my headache". Affect euthymic. TP log/socorro, content appropriate. Denies SI/HI. Denies perceptual disturbance. Cognition grossly intact. I/J fair. A/P: Engaged in more insightful interview today identifying stressors and possible mitigation for these stressors in the future. Try ibuprofen and claritin for post-ocular pain. Continue to monitor and if any visual sx's or pain on ocular movement would request medical consult. None currently.
--- NOTE | 2017-02-09 12:49 | NUR ---
Patient is A&O X 3, present in the unit compliant with medication and group therapies/ activities. Patient mood is stable with full range affects, vital sign is stable, hypotensive but asymtomatic. Patient continues to report nagging headache at her Right Eye, the Psychiatrist was notified who increased her Ibuprofen order from 400 mg to 600 mg. Patient reported good night sleep and appetite takes care of her personal hygiene and interacts appropriately with other peers and staff members. Patient denies thought of self-harm and to someone else.
[2017-02-09 15:58] VITALS: BP 123/73
--- NOTE | 2017-02-09 17:44 | NUR ---
PT IS COOPERATIVE WITH STAFF AND PEERS, AND COMPLIANT WITH UNIT RULES. OFTEN IN MILIEU, INTERACTING WELL WITH OTHERS. MOOD IS STABLE, AFFECT APPEARS BRIGHT TO FULL RANGE, COMMUNICATION IS ORGANIZED, BUT SLIGHTLY RAPID, LOUD, AND AT TIMES CAN BE PRESSURED. APPETITE IS NORMAL. PT DENIES SI AT THIS TIME.
[2017-02-09 19:51] VITALS: BP 129/77
[2017-02-10 07:44] VITALS: BP 124/69
[2017-02-10] MEDS ORDERED: LORATADINE10 M1 PO (11:13)
[2017-02-10] MEDS ORDERED: ONE DAILY MULT1 EAC2 PO (11:13)
[2017-02-10] MEDS ORDERED: SEROQUEL50 M1 PO (11:13)
--- NOTE | 2017-02-10 11:13 | CP SOUTH PROGRESS NOTE PSYCH ---
Psych (Inpt) Progress Note Progress Note Include the following elements, when applicable: Involvement in the active treatment of the patient with behavioral observations of the patient and the patient's response to the treatment. Review of the ongoing treatment process in the context of the treatment plan. Indication of how multi-disciplinary staff members are carrying out the treatment plan. Plans for future interventions and recommendations for revision of the treatment plan. Liaison with other physicians/providers. Progress Note: I discussed this patient's progress to date, current mental status, treatment process in the context of the treatment plan, and discharge planning with staff/ team in the daily morning inpatient team meeting. I also met with the patient myself in individual session. Current Medications Sig/Mervat Start time Last Medication Dose Route Stop Time Status Admin Gabapentin 200 MG Q4H PRN 02/06 1915 AC 02/08 PO 2200 Ibuprofen 600 MG Q4P PRN 02/09 1030 AC 02/09 PO 2144 Loratadine 10 MG DAILY 02/09 1025 AC 02/10 PO 0847 Melatonin 5 MG AT BEDTIME NEED.. 02/06 1915 AC 02/08 PO 2200 Multivitamins 1 TAB DAILY 02/07 1000 AC 02/10 PO 0847 Quetiapine Fumarate 50 MG 02/07 2200 AC 02/09 PO 2142 Quetiapine Fumarate 25 MG Q6-PRN PRN 02/07 1415 AC PO Vital Signs Date Time Temp Pulse Resp B/P B/P Pulse O2 O2 Flow FiO2 Mean Ox Delivery Rate 02/10 0744 96.6 81 124/69 02/09 2144 97.0 02/09 1951 97.0 80 129/77 02/09 1558 82 123/73 02/09 1205 86 99/59 A: Chart, progress notes, labs, vital signs and medication list were reviewed. Vital signs within normal limits. Lipid panel and TSH resulted normal. A family meeting was held with the patient, her mother (Kirsty), the patient's boyfriend (Jam) via speaker phone, Ksenia Sharma LCSW, and this television writer. The patient's treatment progress to date, medication regimen, level of safety and discharge planning were reviewed and discussed. Kirsty reported the patient has no prior history of behavioral impulsivity, suicide attempts, inpatient hospitalizations, elevated mood, or psychotic symptoms. Kirsty denied any family hx of mood disorders, psychiatric illness or suicide attempts. The patient expressed that recent overdose was an attempt to "escape" from the stressful situation of taking care of her multiple children and having no support prior to now. Kirsty stated that the patient had been significantly overwhelmed by caring for her (four) children of varying ages; her disabled son's behavioral issues and her other child who was sick, in addition to her inability to sleep d/t her frequent attempts to meet the many needs to her children. Kirsty reported that since recent DCF involvement, both herself and Jam will be taking turns staying with the patient at home (including overnight) to assist with children's court magistrate so the patient can attend an IOP program. Kirsty stated that she recently enrolled the patient's youngest child into daycare to help decrease the stress associated with caring for multiple children. The patient is agreeable to work with DCF going forward and verbalized understanding of DCF's involvement; she appeared accepting of this information. The patient agreed to sign a release of information once in [facility] to have her mother involved in her outpatient care. Both the patient and her mother were in favor of discharge plan for the patient to follow up with [facility]. Neither Jam or Kirsty expressed any safety concerns surrounding the patient's discharge or discharge plan. On the date of discharge, 02/10/17, the patient presented alert and oriented x 3. She described her mood as "better." Affect full-range, non-labile, appropriate. Speech normal in rate, tone and volume. Eye contact appropriate. She offered no complaints. She rated anxiety a 2/10 (10 being the worst). Rated depression a 0/ 10 (10 being the worst). She denied racing thoughts. Described her energy level as good. Stated she is sleeping well without issue. Reported her appetite is stable. She denied feeling hopeless, helpless, worthless and guilty. She denied passive and active suicidal ideation, plans and intent. She denied homicidal ideation, auditory and visual hallucinations. She stated and also believed she will not harm herself or others. Identified protective factors of her mother, Jam, and children. Thought process linear, goal-directed. No evidence of paranoia or julio delusions. Insight and judgement fair. She reported tolerating medications well and denied untoward medication effects. She reported feeling safe and ready for discharge. P: -discharge today into the care of her mother. -f/u at [facility] for intake today at 2PM. -discharge prescriptions were e-prescribed to [facility] in [place] ([facility]anda [facility]) today, per patient request. -patient advised that in the event of an emergency, to call 2111/go to the nearest emergency department; patient verbalized understanding of instructions. will be taking turns staying at the patient's house (including overnight) to assist with children's court magistrate. -F/u at [facility] for intake at -Patient was advised to please take her medication as prescribed. Discharge prescriptions were e-prescribed to [facility] [place] ([facility]) today, per pt request. -Patient was advised that in the event of an emergency, to call 211/1/go to the nearest emergency department. The patient verbalized understanding of all instructions.
--- NOTE | 2017-02-10 11:14 | DISCHARGE SUMMARY REPORT-PSYCH ---
Visit Information Visit Dates/Diagnosis' Admission Date: 02/06/17 Discharge Date: 02/10/17 Reason for Admission: Overdose on multiple medications with unclear intent. Psy Discharge Primary Diag: Unspecified mood disorder Psy Discharge Secondary Diag: R/O Bipolar disorder unspecified Hospital Course Course Allergies: Coded Allergies: Penicillins (Intermediate, RASH 02/02/17) Uncoded Allergies: MEDICAL TAPE (Intermediate, RASH 02/02/17) Discharge HBIPS - Tobacco Use Treatment Offered - EtOH/Drug Use D/O Treatment Offered Metabolic Screening - Screen if on a Neuroleptic Medication - Metabolic screening should include: - Blood Pressure, BMI, Glucose or Hgb A1c, & a - Lipid profile from within the past 365 days.
--- NOTE | 2017-02-10 12:05 | NUR ---
states she is in a very good mood today slept well and looking forward to discharge today after family meeting. Mood stable. Very present in the milieu. denies SI at this time. scheduled for IOP intake at 2pm but will go home to shower first.
[2017-02-10 12:06] VITALS: BP 128/75
--- NOTE | 2017-02-10 12:25 | SOCIAL WORKER PROG NOTE PSYCH ---
Social Work Progress Note Progress Note 10:40am Fan Gong APRN, this senior technical writer met with pt and her mother, Kirsty, for a family meeting. Pt's boyfriend, Jam, attended by phone. Pt's mother denied any family hx of mood d/o. Pt and family did not have any concerns about pt returning home. Discharge plans were discussed. Pt appeared motivated/willing to attend IOP. Pt's mother and boyfriend stated that they would be staying with the pt to provide additional support and allow pt to have some time to herself and ensure adequate sleep. Discharge plans and family's reported plans to remain involved and stay with the pt were reviewed with Dr. Heller. Discharge is set for today. Pt accepted an IOP intake time of 02/10/17 at 2pm. She discussed looking forward to spending time with her family and children. She denied SI/HI/AH/VH. Ksenia Herrera (dcf - [phone]) was contacted regarding discharge plan and also at request of patient. A vm was left informing her that the pt was discharging today and has an IOP intake scheduled for 2pm this afternoon.
== END 2017-02-10 12:20 | DRG 753 ==
LOC: CP SOUTH 11:18 → ENPENDDIS 02-10 12:00 → CP SOUTH 02-10 12:20
PROVIDERS: Registered Nurse Psychiatric/Mental Health; ADMIT Psychiatry & Neurology Addiction Medicine
DX: F39 Unspecified mood [affective] disorder (principal)
CPT/HCPCS: 36415; 80307; 93005; 93010